=== PATIENT | female | born 2000 | race African-American/Black ===

== ENCOUNTER 2025-08-06 16:53 | Emergency (ER) | payer OTHER ==
[~2025-08-06] VITALS: Ht 152.4 cm; Wt 113.0 kg
[2025-08-06 16:56] VITALS: O2SAT 100
[2025-08-06 18:15] LABS: BASOPHILS % 0.3 % (0.0-2.0); EOSINOPHILS % 0.2 % (0.0-5.0); HEMATOCRIT. 39.6 % (36.0-48.0); HEMOGLOBIN. 12.7 g/dL (12.0-16.0); LYMPHOCYTES % 15.0 % (20.0-50.0); MEAN PLATELET VOLUME 8.6 fl (7.4-10.4); MONOCYTES % 3.8 % (2.0-8.0); NEUTROPHILS % 80.7 % (40.0-76.0); PLATELET 250 x1000/uL (130-400); RED BLOOD CELL COUNT 4.48 mill/uL (4.2-5.4); RED CELL DISTRIBUTION WIDTH 15.9 % (11.6-14.6)
[2025-08-06 18:27] LABS: CREATININE 1.0 mg/dL (0.6-1.0); UREA NITROGEN BLOOD 9 mg/dL (9-23)
[2025-08-06 18:49] LABS: B-HCG QUANTITATIVE 106735 mIU/mL (<6)
[2025-08-06 20:12] VITALS: BP 124/79; PULSE 72; RESP 14; TEMP 36.7; O2SAT 100
== END 2025-08-06 20:15 | disposition home or self-care (01) ==
LOC: ER 16:53
DX: O26.891 Other specified pregnancy related conditions, first trimester (principal); O99.511 Diseases of the respiratory system complicating pregnancy, first trimester; R10.20 Pelvic and perineal pain unspecified side; Z3A.08 8 weeks gestation of pregnancy
CPT/HCPCS: 36415; 76801; 80048; 84702; 85025; 86850; 86900; 99284